=== PATIENT | female | born 1995 | race Hispanic/Latino ===

== ENCOUNTER 2017-07-16 15:48 | Outpatient (CLI) | payer OTHER | END 2017-07-16 15:49 | disposition home or self-care (01) | LOC: BICMRI 15:48 | PROVIDERS: ATTEND Orthopaedic Surgery Hand Surgery | DX: S69.91XA Unspecified injury of right wrist, hand and finger(s), initial encounter (principal); M65.841 Other synovitis and tenosynovitis, right hand ==

== ENCOUNTER 2017-08-01 13:24 | Outpatient (CLI) | payer OTHER ==
[2017-08-01 13:49] LABS: #Basophils 0.1 thou/uL (0.0-0.2); #Eosinphils 0.2 thou/uL (0.0-0.7); #Monocytes 0.5 thou/uL (0.11-0.59); #Neutrophils 5.3 thou/uL (1.40-6.50); %Basophils 0.6 % (0.0-1.0); %Eosinophils 2.2 % (0.0-10.0); %Lymphocytes 32.9 % (21.0-51.0); %Monocytes 5.4 % (0.0-10.0); %Neutrophils 58.9 % (42.0-75.0); Hemoglobin 15.1 g/dL (12.0-16.0); Mean Corpuscular HGB CONC 34.3 g/dL (32.0-36.0); Mean Corpuscular Hemoglobin 31.9 pg (27.0-31.0); Mean Corpuscular Volume 92.9 fl (81.0-99.0); Mean Platelet Volume 7.5 fL (7.4-10.4); Platelet Count 264 thou/uL (130-400); RBC Distribution Width 10.8 % (11.5-14.5); Red Blood Cell (RBC) Count 4.74 mill/uL (4.20-5.40)
[2017-08-01 14:20] LABS: BHCG - Serum Negative (NEGATIVE); Pregs Control Background? CLEAR/WHITE (CLR/WHITE); Pregs Control Bar Appear? YES (CONTROL BAR)
== END 2017-08-01 13:25 | disposition home or self-care (01) ==
LOC: LABBT 13:24
PROVIDERS: ATTEND Orthopaedic Surgery Hand Surgery
DX: S63.591A Other specified sprain of right wrist, initial encounter (principal); S63.32 Traumatic rupture of radiocarpal ligament; S69.91XA Unspecified injury of right wrist, hand and finger(s), initial encounter
CPT/HCPCS: 84703; 85025

== ENCOUNTER 2017-08-02 08:11 | Day surgery (SDC) | payer OTHER ==
[2017-08-01 13:48] VITALS: BMI 21.6
[2017-08-02] MEDS ORDERED: CEFAZOLIN/Water 2 GM/20 ML SYRINGE ONE (08:45)
[2017-08-02] MEDS ORDERED: Midazolam HCl 2 mg/2 ml Vial ONE (15:44)
[2017-08-02] MEDS ORDERED: Fentanyl 100 MCG/2 ML VIAL ONE (15:44)
[2017-08-02] MEDS ORDERED: Promethazine HCl 25 MG/ML VIAL ONE (15:44)
[2017-08-02] MEDS ORDERED: EPINEPHrine 1 MG/ML AMP ONE (15:48)
[2017-08-02] MEDS ORDERED: Dexamethasone 20 MG/5 ML VIAL ONE (15:48)
[2017-08-02] MEDS ORDERED: PROPOFOL 200 MG/20 ML VIAL ONE (15:48)
[2017-08-02] MEDS ORDERED: Lidocaine 1% PF 5 ML VIAL ONE (15:48)
[2017-08-02] MEDS ORDERED: Bupivacaine PF 0.5% 30 ML VIAL ONE (15:48)
[2017-08-02] MEDS ORDERED: Bacitracin Zinc Ointment 30 gm TUBE ONE (15:48)
[2017-08-02] MEDS ORDERED: Ketorolac Tromethamine 30 MG/ML VIAL ONE ×2 (19:15)
--- NOTE | 2017-08-02 19:28 | RAD ---
RIGHT WRIST TWO VIEWS: 08/02/17 HISTORY: Wrist fracture. FINDINGS/IMPRESSION: Two spot fluoroscopic intraoperative images of the right wrist demonstrate two pins through the lunat e and triquetral bones. POS: [facility]
--- NOTE | 2017-08-05 10:44 | OP ---
DATE OF PROCEDURE: 08/02/2017 PREOPERATIVE DIAGNOSIS: Synovitis wrist, right. POSTOPERATIVE DIAGNOSES: 1. Left radial triquetral ligament partial tear with instability, possibly 40% direct dorsal and sammy tral portion of the ligament. 2. Synovitis, right wrist. PROCEDURE PERFORMED: 1. Arthroscopic right wrist synovectomy. 2. Open radial triquetral ligament reconstruction with lunate triquetral joint pain. TOURNIQUET TIME: 80 minutes. C-arm supervision yes. FINDINGS: A 5 mm long partial tear with lunate and triquetral instability when probed through the sc ope. Not seen on MRI scan. DESCRIPTION OF PROCEDURE: After successful general endotracheal anesthesia was obtained the patient' s limb was prepped and draped. We then had the timeout done appropriately and then the limb was plac ed in appropriate traction overhead in a sterile fashion using the [employer] wrist roy. The patient then had the standard 3-4, 6-6 portal was established. A panoramic view of the wrist was accomplished, which demonstrated that the patient had marked synovitis primarily in the central and ulnar carpal joint. Once finished synovectomy then continued to view and there we saw which under fl uoroscopy what appeared to be large 5-6 mm complete tear. We probed the lunate and triquetrum had in stability between each other therefore, there was significant tear. The triangular fibrocartilage, t he main portion of the lunate chondral surface, scaphoid, remained in radiocarpal and ulnar carpal adore int was negative to include ulnocarpal ligaments. We then abandoned the arthroscopy, closed the radial portal. Then, with the arm still in the same tr action position, exsanguinated the limb, placed tourniquet 250 mmHg pressure. Made a zigzag incision centered on the 6U portal. We entered the interval of the abductor digiti minimi and retracted that ulnarly and radially. I made an arthrotomy of the joint with an 11 blade knife, visualized the TFCC and then the tear. The tear had been debrided on its edges and primarily torn off of the triquetrum with the lunate portion intact. We placed a separate suture x2 and then one anchor, placed the sutures in place and then re duced the joint in the frontal sagittal planes to where we had a perfect sagittal plane, scapholunate and radiocapitellar alignment and then pinned the joint with slight compression. Once 2 K wires wer e confirmed to be in excellent position in frontal sagittal plane, we then tied the sutures. We clos ed the joint capsule with interrupted 2-0 Vicryl in a figure of eight pattern. We released the tourn iquet, obtained hemostasis. Repaired the retinaculum with the extensor digiti minimi in appropriate position with a 3-0 Monocryl. 4-0 Monocryl was used for subcutaneous closure and skin approximated w ith 4-0 nylon here and at the portals. The patient left the operating room after being given a 20 mL injection of 0.5% Marcaine and a sugar tong splint postop. No evidence of anesthetic or operative c omplication was seen or confirm the position.
== END 2017-08-02 20:40 | disposition home or self-care (01) ==
LOC: SDC 08:11
PROVIDERS: ATTEND Orthopaedic Surgery Hand Surgery
PROC: 0RBN4ZZ Excision of Right Wrist Joint, Percutaneous Endoscopic Approach (ICD-10-PCS; principal; 2017-08-02)
PROC: 0RQN0ZZ Repair Right Wrist Joint, Open Approach (ICD-10-PCS; principal; 2017-08-02)
DX: S63.32 Traumatic rupture of radiocarpal ligament (principal); M65.4 Radial styloid tenosynovitis [de Quervain]
CPT/HCPCS: 76001; 96372; 96374; C1713; J0171; J1100; J1885; J2001; J2250; J2550; J2704; J3010; S0020

== ENCOUNTER 2017-11-30 19:16 | Emergency (ER) | payer OTHER ==
--- NOTE | 2017-11-30 20:28 | RAD ---
THREE VIEWS RIGHT FOOT: 11/30/17 HISTORY: Shelf fell on patient's right foot. Trauma right foot. FINDINGS: The Lisfranc joint is normally aligned. There is no evidence of a fracture, dislocation, or other oss eous abnormality involving the right foot. There is subcutaneous soft tissue swelling at the dorsal a spect of the foot. IMPRESSION: Subcutaneous soft tissue swelling without evidence of a fracture. POS: [facility]
[2017-11-30] MEDS ORDERED: Bacitracin Zinc 1 Packet ONE (21:04)
== END 2017-11-30 21:20 | disposition home or self-care (01) ==
LOC: ERS 19:16
DX: S81.011A Laceration without foreign body, right knee, initial encounter (principal); S90.31XA Contusion of right foot, initial encounter; W18.30XA Fall on same level, unspecified, initial encounter

== ENCOUNTER 2017-12-03 21:01 | Emergency (ER) | payer OTHER ==
[2017-12-03] MEDS ORDERED: Ondansetron ODT 4 MG TAB ONE (21:31)
--- NOTE | 2017-12-03 22:21 | RAD ---
RIGHT FOOT THREE VIEWS: 12/03/17 HISTORY: Right foot injury. COMPARISON: 11/30/17. FINDINGS: Lisfranc joint alignment is anatomic. Plantar arch maintained. No acute fracture or dislocation. IMPRESSION: No acute osseous abnormalities are demonstrated. POS: [facility]
== END 2017-12-03 22:27 | disposition home or self-care (01) ==
LOC: ERS 21:01
DX: S90.31XA Contusion of right foot, initial encounter (principal); W22.8XXA Striking against or struck by other objects, initial encounter
CPT/HCPCS: Q0162

== ENCOUNTER → 2017-12-17 | Day surgery (SDC) | payer OTHER ==
[2017-12-16 12:56] VITALS: BMI 21.9
[~2017-12-17] MED LIST: Bacitracin Zinc Ointment 30 gm TUBE ONE; Betamet Acet/Betamet Na Ph 30 MG/5 ML VIAL ONE; Bupivacaine PF 0.5% 30 ML VIAL ONE; CEFAZOLIN/Water 2 GM/20 ML SYRINGE ONE; Fentanyl 100 MCG/2 ML VIAL ONE; Ketorolac Tromethamine 30 MG/ML VIAL ONE; Midazolam HCl 2 mg/2 ml Vial ONE
--- NOTE | 2017-12-17 13:11 | RAD ---
INTRAOPERATIVE FLUOROSCOPIC IMAGES RIGHT WRIST: 12/17/2017 HISTORY: Hardware removal. Right wrist fracture. COMPARISON: 08/02/2017 FLUOROSCOPY TIME: Zero seconds with total dose 0.80405 mGy FINDINGS\IMPRESSION: The previously noted two K-wires transfixing the lunate and triquetral bones have been removed. Tiny metallic density seen within the triquetral bone persists. Correlation with intraoperative findings is recommended. POS: [facility]
--- NOTE | 2017-12-17 13:27 | OP ---
DATE OF PROCEDURE: 12/17/2017 SURGEON: Dr. Jairon Robison PREOPERATIVE DIAGNOSIS: Right painful lunotriquetral implant/K wires. POSTOPERATIVE DIAGNOSIS: Right painful lunotriquetral implant/k wires. PROCEDURE PERFORMED: 1. Removal of painful K-wires x2. 2. C-arm supervision 2 wires removed, not sent as specimens. ESTIMATED BLOOD LOSS: 10 mL. TOURNIQUET TIME: 8 minutes. COMPLICATIONS: None. FINDINGS: After the K-wires were removed under C-arm stable joint and the lunotriquetral with no vol ar intercalated segmental instability pattern seen after wires out and with manipulation and post-man ipulation. INDICATIONS: The patient is now almost 6 months out from a lunotriquetral ligament repair/reconstruc tion with anchors and had 2 wires across the lunotriquetral joint. These are to be removed now. The patient is preparing for school and radiographs show excellent healing today along with clinically e xcellent healing today. DESCRIPTION OF PROCEDURE: After successful general LMA technique by [facility], the limb wa s prepped and draped. C-arm brought into the field. We identified the K-wires, I then exsanguinated the limb with a small 5-6 mm incision extended from the proximal end of the distal K-wire to the dis brett and proximal K-wire. Carried through skin and subcutaneous tissue were dissected free any subcut aneous nerves and first remove the proximal pin and then the distal pin without any radiographic evid ence of change at the excellent reduction of the lunotriquetral joint. No crepitus with full rotatio n and passive and active extension and flexion of the right wrist. We released the tourniquet, obtai atif hemostasis, closed the wound with interrupted [id number] chromic and then a bulky dressing w as applied. She got a total of 12 mL of 0.5% Marcaine with epinephrine block and left the operating room without complications.
== END ==
LOC: SDC 10:02
PROVIDERS: ATTEND Orthopaedic Surgery Hand Surgery
PROC: 0PPM04Z Removal of Internal Fixation Device from Right Carpal, Open Approach (ICD-10-PCS; principal; 2017-12-17)
DX: T84.84XA Pain due to internal orthopedic prosthetic devices, implants and grafts, initial encounter (principal); M65.4 Radial styloid tenosynovitis [de Quervain]; M77.8 Other enthesopathies, not elsewhere classified; Z98.890 Other specified postprocedural states
CPT/HCPCS: 76001; 96374; J0702; J1885; J2250; J3010; S0020